=== PATIENT | male | born 1990 | race Caucasian/White ===

== ENCOUNTER 2022-08-11 10:37 | Outpatient (CLI) | payer OTHER | END 2022-08-11 10:38 | disposition critical access hospital (66) | LOC: EMS 10:37 | DX: R10.13 Epigastric pain (principal); R11.2 Nausea with vomiting, unspecified; R61 Generalized hyperhidrosis; R23.1 Pallor | CPT/HCPCS: A0425; A0427 ==

== ENCOUNTER 2022-08-11 11:19 | Emergency (ER) | payer OTHER ==
[2022-08-11] MEDS ORDERED: ONDANSETRON 4 MG/2 ML VIAL IVP STA (11:54)
[2022-08-11] MEDS ORDERED: SODIUM CHLORIDE 0.9% 1,000 ML IV STA (11:54)
[2022-08-11 12:06] LABS: BASOPHILS % (AUTO) 0.3 %; EOSINOPHILS % (AUTO) 0.2 %; HCT - HEMATOCRIT 43.8 % (42.0-52.0); HGB - HEMOGLOBIN 15.2 g/dL (14.0-18.0); LYMPHOCYTES % (AUTO) 8.4 %; MEAN CORPUSCULAR HEMOGLOBIN 31.6 pg (27.0-31.0); MEAN CORPUSCULAR HGB CONC 34.7 g/dL (32.0-36.0); MEAN CORPUSCULAR VOLUME 91.1 fL (80.0-94.0); MEAN PLATELET VOLUME 10.8 fL (7.4-11.4); MONOCYTES # (AUTO) 0.8 10^3/uL (0.0-1.0); MONOCYTES % (AUTO) 6.9 %; NEUTROPHILS # (AUTO) 9.9 10^3/uL (1.5-6.6); NEUTROPHILS % (AUTO) 83.8 %; PLT - PLATELET COUNT 258 10^3/uL (130-450); RED BLOOD COUNT 4.81 10^6/uL (4.70-6.10); RED CELL DISTRIBUTION WIDTH 11.4 % (12.0-15.0); WHITE BLOOD COUNT 11.8 x10^3/uL (4.8-10.8)
[2022-08-11] MEDS ORDERED: HYDROmorphone 1 MG/ML CARPUJECT IVP STA (12:10)
[2022-08-11] MEDS ORDERED: MAG HYDROX/AL HYDROX/SIMETH 30 ML UDC PO STA (12:10)
[2022-08-11] MEDS ORDERED: LIDOCAINE VISCOUS 2% 15 ML UDC MM STA (12:10)
--- NOTE | 2022-08-11 12:12 | ED Physician Documentation ---
History of Present Illness - Stated complaint Stated Complaint: ABD PX/VOMITING - Chief complaint Chief Complaint: Abd Pain - Additonal information Additional information: 32-year-old male presents emergency department for evaluation of epigastric abdominal pain that began suddenly at rest. He is clutching his stomach and left upper quadrant. Patient states he has never had pain this bad. States he vomited once and there was blood or red in it. He denies any melena or hematochezia. Denies any pertinent surgical history though he has had an EGD that showed a hiatal hernia. He denies tobacco or vaping. Takes 325 mg of aspirin only occasionally. He drinks on average of about 6 beers a week. Review of Systems Constitutional: denies: Fever, Chills Throat: reports: Reviewed and negative Cardiac: reports: Reviewed and negative GI: reports: Abdominal Pain, Nausea, Vomiting. denies: Hematemesis, Bloody / black stool : reports: Reviewed and negative Skin: reports: Reviewed and negative PD PAST MEDICAL HISTORY - Past Medical History Past Medical History: Yes GI: Hiatal hernia - Allergies Allergies/Adverse Reactions: Allergies Allergy/AdvReac Type Severity Reaction Status Date / Time No Known Drug Allergies Allergy Verified 08/11/22 11:38 - Social History Does the pt smoke?: No Smoking Status: Never smoker - Immunizations Immunizations are current?: Yes PD ED PE NORMAL - General General: Alert and oriented X 3, No acute distress, Well developed/nourished - Cardiac Cardiac: RRR, No murmur - Respiratory Respiratory: No respiratory distress, Clear bilaterally - Abdomen Abdomen: Normal bowel sounds, Soft. No: Non tender (Tenderness in the epigastrium. No tenderness elicited along the flank right or left lower quadrants. No CVA tenderness) - Back Back: No CVA TTP - Derm Derm: Normal color, Warm and dry, No rash - Extremities Extremities: No deformity - Neuro Neuro: Alert and oriented X 3, [employer] 2-12 intact Eye Opening: Spontaneous Motor: Obeys Commands Verbal: Oriented GCS Score: 15 Results - Vitals Vitals: Vital Signs - 24 hr 08/11/22 08/11/22 11:30 15:00 Temperature 37 C 36.5 C Heart Rate 85 71 Respiratory 22 16 Rate Blood Pressure 172/97 H 148/73 H O2 Saturation 100 100 Oxygen O2 Source Room air - Labs Labs: Laboratory Tests 08/11/22 08/11/22 08/11/22 12:00 12:00 13:12 WBC 11.8 H RBC 4.81 Hgb 15.2 Hct 43.8 MCV 91.1 MCH 31.6 H MCHC 34.7 RDW 11.4 L Plt Count 258 MPV 10.8 Neut # (Auto) 9.9 H Lymph # (Auto) 1.0 L Wolfe # (Auto) 0.8 Eos # (Auto) 0.0 Baso # (Auto) 0.0 Absolute Nucleated RBC 0.00 Nucleated RBC % 0.0 Sodium 134 L Potassium 3.9 Chloride 101 Carbon Dioxide 21 Anion Gap 12.0 BUN 15 Creatinine 1.1 Estimated GFR (MDRD) 79 L Glucose 112 H Calcium 9.6 Total Bilirubin 1.3 H AST 37 ALT 38 Alkaline Phosphatase 40 L Total Protein 8.1 Albumin 4.6 Globulin 3.5 Albumin/Globulin Ratio 1.3 Lipase 45 Urine Color YELLOW Urine Clarity CLEAR Urine pH 7.5 Ur Specific [place] 1.010 Urine Protein NEGATIVE Urine Glucose (UA) NEGATIVE Urine Ketones TRACE Urine Occult Blood NEGATIVE Urine Nitrite NEGATIVE Urine Bilirubin NEGATIVE Urine Urobilinogen 0.2 (NORMAL) Ur Leukocyte Esterase NEGATIVE Ur Microscopic Review NOT INDICATED Urine Culture Comments NOT INDICATED - Rads (name of study) CT abd Radiology: Final report received (Questionable transverse colon wall thickening which may be due to underdistention. Low-grade colitis cannot be excluded. No bowel obstruction. No areas of abnormal wall thickening. No free fluid or air. No evidence of acute appendicitis. Mild diffuse bladder wall thickening) PD MEDICAL DECISION MAKING - ED course Complexity details: reviewed results, re-evaluated patient, considered differential, d/w patient ED course: 32-year-old male presents emergency department for evaluation of acute epigastric abdominal pain that occurred just about an hour prior to arrival. No history of similar. He did report hematic emesis. He does take aspirin occasionally for pain and does have moderate alcohol use. Given the reported hematemesis I did have a suspicion for gastritis. He was administered Maalox as well as lidocaine in the emergency department which markedly improved his symptoms. CBC and electrolytes were without worrisome findings. A CT of the abdomen suggested some transverse colon colitis but given the lack of fevers leukocytosis or diarrhea deferred any antibiotic treatment. I suspect the patient likely has gastritis and I discussed this with him. I have encouraged him to follow closely with his primary care provider. He likely needs follow-up with GI for an EGD. Otherwise emergent return precautions were discussed. Departure - Departure Disposition: 01 Home, Self Care Clinical Impression: Epigastric abdominal pain Condition: Stable Record reviewed to determine appropriate education?: Yes Instructions: ED Gastritis Comments: Roni you are seen today in the emergency department for sudden pain in your upper abdominal area. You did vomit and reported that there was some blood- tinged emesis. Here in the emergency department the CBC and electrolytes did not show any worrisome findings. You were given a medication called Maalox and lidocaine which seems to have improved the sensation of pain in your upper abdomen. I suspect that you have gastritis which is an inflammation of the stomach lining. [place] for you to obtain an EGD to look for ulcers or other similar things that can cause this discomfort. I do recommend that you reduce your alcohol use. Avoid NSAID or aspirin medications. Please begin taking omeprazole 20 mg once daily. I would recommend that you avoid any spicy foods. For the next 24 hours clear liquids then slowly advance your diet. Return immediately to the ER if you develop any fevers, have black or bloody stools, any fainting episodes or any other emergent concerns. Discharge Date/Time: 08/11/22 15:00
[2022-08-11 12:22] LABS: ALBUMIN 4.6 g/dL (3.2-5.5); ALBUMIN/GLOBULIN RATIO 1.3 (1.0-2.2); BILIRUBIN,TOTAL 1.3 mg/dL (0.2-1.0); CALCIUM 9.6 mg/dL (8.5-10.3); CREATININE 1.1 mg/dL (0.6-1.2); POTASSIUM 3.9 mmol/L (3.5-5.0); TOTAL PROTEIN 8.1 g/dL (6.7-8.2)
--- NOTE | 2022-08-11 13:37 | CT Report ---
PROCEDURE: ABDOMEN/PELVIS WO INDICATIONS: epigastric pain; TECHNIQUE: Noncontrast 5 mm thick sections acquired from the diaphragms to the symphysis. 5 mm coronal and sagi ttal reformats were then performed. For radiation dose reduction, the following was used: automated exposure control, adjustment of mA and/or kV according to patient size. COMPARISON: None. FINDINGS: Image quality: Excellent. ABDOMEN: Lung bases: Lung bases are clear. Heart size is normal. Solid organs: Liver and spleen are normal in size. Gallbladder is within normal limits. Pancreas i s normal in contours. No adrenal nodules. Kidneys are normal in size, without hydronephrosis or nep hrolithiasis. Peritoneum and bowel: There is no bowel obstruction. Questionable proximal to mid transverse colon wa ll thickening is seen with minimal amount of pericolonic fat stranding. No other area of abnormal bow el wall thickening. No free fluid of free air. Nodes and vessels: No retroperitoneal or mesenteric adenopathy by size criteria. Aorta and inferior vena cava are normal in caliber. Miscellaneous: No ventral hernias. PELVIS: Genitourinary: Mild diffuse bladder wall thickening is noted. No discrete bladder wall mass. No calci fied bladder stones. Miscellaneous: No inguinal hernias or adenopathy. Bones: No suspicious bony lesions. No vertebral body compression fractures. IMPRESSION: 1. Questionable transverse colon wall thickening which may be due to underdistention. Low-grade colit is cannot be excluded. No bowel obstruction. No other area of abnormal bowel wall thickening. No free fluid of free air. No evidence of acute appendicitis. 2. Mild diffuse bladder wall thickening, low-grade cystitis cannot be excluded. Clinical correlation is recommended. No renal stones or hydronephrosis. Reviewed by: Guillermo Anderson MD on 08/11/2022 1:36 PM PDT Approved by: Guillermo Anderson MD on 08/11/2022 1:36 PM PDT Station ID: [id number]
[2022-08-11 14:31] LABS: BILIRUBIN,URINE NEGATIVE (NEGATIVE); GLUCOSE, URINE (UA) NEGATIVE (NEGATIVE); KETONES,URINE (UA) TRACE mg/dL (NEGATIVE); LEUKOCYTE ESTERASE, URINE NEGATIVE (NEGATIVE); NITRITE,URINE NEGATIVE (NEGATIVE); OCCULT BLOOD,URINE NEGATIVE (NEGATIVE); PH,URINE 7.5 PH (5.0-7.5); PROTEIN,URINE NEGATIVE (NEGATIVE); UROBILINOGEN,URINE 0.2 (NORMAL) E.U./dL (NORMAL)
[2022-08-11 14:32] LABS: CLARITY,URINE CLEAR (CLEAR)
[2022-08-11 15:09] VITALS: BP 148/73
== END 2022-08-11 15:00 | disposition home or self-care (01) ==
LOC: ED 11:19
DX: R10.13 Epigastric pain (principal)
CPT/HCPCS: 36415; 74176; 80053; 81003; 83690; 85025; 93005; 96374; 96375; 99282; 99284; A9270; J1170; 81001; 87086